=== PATIENT | male | born 1980 | race Caucasian/White ===

== ENCOUNTER 2023-04-05 15:40 | Emergency (ER) | payer MEDICAID ==
[~2023-04-05] VITALS: Ht 167.6 cm; Wt 56.7 kg
--- NOTE | 2023-04-05 15:44 | NUR ---
mera, from [facility], had tonic clonic seizure episode lasted 2 mins bg 95, non-compliant with meds
--- NOTE | 2023-04-05 17:21 | NUR ---
Patient discharged to home in stable condition. Written and verbal after care instructions given. Patient verbalizes understanding of instruction.
[2023-04-05 17:22] VITALS: BP 132/77
== END 2023-04-05 17:22 | disposition home or self-care (01) ==
LOC: ER 15:42
DX: R56.9 Unspecified convulsions (principal)
CPT/HCPCS: 82962-TC